=== PATIENT | male | born 1950 | race Caucasian/White ===

== ENCOUNTER → 2020-05-23 09:31 | Outpatient (CLI) | payer MEDICARE, OTHER ==
[2011-04-07 10:39] VITALS: BMI 26.1
== END | disposition home or self-care (01) ==
LOC: D.US 09:31
PROVIDERS: ATTEND Legal Medicine
DX: N50.89 Other specified disorders of the male genital organs (principal)

== ENCOUNTER 2020-07-18 10:30 | Day surgery (SDC) | payer MEDICARE, OTHER ==
[~2020-07-18] VITALS: Ht 177.8 cm; Wt 85.0 kg
[2020-07-18 10:51] LABS: HEMOGLOBIN 14.9 g/dL (13.5-17.5); LYMPHOCYTES 24.7 % (15-50); MCH 33.7 pg (26.0-34.0); MCHC 33.9 g/dL (31.0-37.0); MCV 99.5 fL (80.0-100.0); MEAN PLATELET VOLUME 10.7 fL (7.4-10.4); NEUTROPHILS 60.4 % (40-80); RBC 4.42 10x6/uL (4.20-6.10); RDW 12.9 % (11.5-14.5); WBC 3.4 10x3/uL (4.8-10.8)
[2020-07-18 10:53] LABS: PLATELET COUNT 109 10x3/uL (130-400)
[2020-07-18 11:03] LABS: APTT 29.8 SECONDS (22.8-39.4); INR 0.89 (0.85-1.17)
[2020-07-18 11:09] LABS: CALC OSMOLALITY 278 mosm/kg (275-300); CARBON DIOXIDE 28.1 mmol/L (21.0-32.0); CHLORIDE - SERUM 104 mmol/L (98-107); CREATININE - SERUM 0.9 mg/dL (0.6-1.3); GLUCOSE 127 mg/dL (74-106); POTASSIUM - SERUM 4.6 mmol/L (3.5-5.1); SODIUM 138 mmol/L (136-145); UREA NITROGEN 16 mg/dL (7-18); eGFR NON AFRICAN AMERICAN 89 mL/min (90-120)
[2020-07-18] MEDS ORDERED: MOBIC7.5 MG PO (11:11)
[2020-07-18] MEDS ORDERED: LISINOPRIL20 MG PO (11:11)
[2020-07-18] MEDS ORDERED: LIPITOR20 MG PO (11:11)
[2020-07-18] MEDS ORDERED: FISH OIL 1,0001 CA1 PO (11:12)
[2020-07-18 11:13] VITALS: BP 151/78; Ht 177.8 cm; Wt 85.0 kg
--- NOTE | 2020-07-18 17:58 | NUR ---
1800 IV REMOVED AND INSTRUCTIONS GIVEN. SITE WITH OUT SWELLING OR REDDNESS, DENIES PAIN.
== END 2020-07-18 18:15 | disposition home or self-care (01) ==
LOC: D.SP 10:30 → D.CT 13:00 → D.SP 13:00
PROVIDERS: Radiology Vascular & Interventional Radiology; ATTEND Legal Medicine
DX: B18.2 Chronic viral hepatitis C (principal); R77.2 Abnormality of alphafetoprotein; N50.89 Other specified disorders of the male genital organs